=== PATIENT | male | born 1990 | race Caucasian/White ===

== ENCOUNTER 2020-01-20 18:12 | Emergency (ER) | payer OTHER ==
[~2020-01-20] VITALS: Ht 190.5 cm; Wt 145.0 kg
[2020-01-20 19:08] LABS: CLARITY,URINE CLEAR (Clear); COLOR,URINE YELLOW (Yellow); GLUCOSE, URINE NEGATIVE (Neg); KETONES,URINE NEGATIVE (Neg); LEUKOCYTE ESTERASE ,URINE NEGATIVE (Neg); NITRITES, URINE NEGATIVE (Neg); OCCULT BLOOD,URINE SMALL (Neg); PROTEIN,URINE NEGATIVE (Neg)
[2020-01-20 19:11] LABS: UA COLLECTION TYPE CLN CATCH MIDSTREAM
[2020-01-20 19:26] LABS: BACTERIA,URINE NONE SEEN /HPF (Neg); RBC,URINE 0-2 /HPF (0-2); SQUAMOUS EPITHELIAL CELL,UR FEW /LPF (FEW); WBC,URINE 0-4 /HPF (0-4)
--- NOTE | 2020-01-20 19:30 | NUR ---
ULTRASOUND IN ROOM
[2020-01-20 19:33] VITALS: BP 98/56
[2020-01-20] MEDS ORDERED: CefTRIAXone 250MG IM Kit w/LIDOcaine IM ONE (20:35)
[2020-01-20] MEDS ORDERED: DOXYCYCLINE 100MG CAPSULE PO STA (20:35)
[2020-01-20] MEDS ORDERED: DOXY100C43 PO (20:35)
== END 2020-01-20 21:10 | disposition home or self-care (01) ==
LOC: ER 18:13
DX: N45.1 Epididymitis (principal); N50.811 Right testicular pain; N50.89 Other specified disorders of the male genital organs; Z79.2 Long term (current) use of antibiotics
CPT/HCPCS: 36415; 76870; 81001; 87491; 87591; 93976; 96372; 99284; J0696

== ENCOUNTER 2020-01-24 07:40 | Emergency (ER) | payer OTHER ==
[~2020-01-24] VITALS: Ht 190.5 cm; Wt 142.0 kg
[~2020-01-24 07:40] MED LIST: DOXY100C43 PO
[2020-01-24] MEDS ORDERED: HYDROcodone/acetaminophen 10/325mg tab PO ONE (08:00)
[2020-01-24] MEDS ORDERED: ibuprofen tablet 400 MG TABLET PO ONE (08:00)
[2020-01-24] MEDS ORDERED: ciprofloxacin 250mg tablet PO ONE (08:45)
[2020-01-24] MEDS ORDERED: IBUP-1986 PO (08:46)
[2020-01-24] MEDS ORDERED: CIPR-230 PO (08:46)
[2020-01-24] MEDS ORDERED: HYDR-4353 PO (08:46)
[2020-01-24 09:01] VITALS: BP 132/66
== END 2020-01-24 09:02 | disposition home or self-care (01) ==
LOC: ER 07:41
DX: N45.1 Epididymitis (principal); F17.200 Nicotine dependence, unspecified, uncomplicated; F12.90 Cannabis use, unspecified, uncomplicated; F15.90 Other stimulant use, unspecified, uncomplicated; F14.90 Cocaine use, unspecified, uncomplicated; F11.90 Opioid use, unspecified, uncomplicated; Z98.890 Other specified postprocedural states; Z79.899 Other long term (current) drug therapy
CPT/HCPCS: 29125; 99283; 99284